=== PATIENT | male | born 2000 | race Caucasian/White ===

== ENCOUNTER 2020-11-30 18:23 | Inpatient (IN) | payer OTHER ==
[2020-11-30 23:59] VITALS: BMI 19.8
[2020-12-01] MEDS ORDERED: IBUPROFEN 400 MG TABLET (FP) PO PRN (01:03)
[2020-12-01] MEDS ORDERED: cloNIDine HCL 0.1 MG TABLET PO PRN (01:03)
[2020-12-01] MEDS ORDERED: MAGNESIUM HYDROX 2400MG/30ML ORAL SUSPENSION 30 ML CUP PO PRN (01:03)
[2020-12-01] MEDS ORDERED: MAG HYDROX/AL HYDROX/SIMETH 30 ML UNIT-DOSE CUP PO PRN (01:03)
[2020-12-01] MEDS ORDERED: METHADONE HCL 10 MG TABLET (FOR DETOX USE ONLY) PO ONE (01:03)
[2020-12-01] MEDS ORDERED: MAGNESIUM CITRATE 300 ML BOTTLE PO PRN (01:03)
[2020-12-01] MEDS ORDERED: METHOCARBAMOL 500 MG TABLET PO PRN (01:03)
[2020-12-01] MEDS ORDERED: MENTHOL/PHENOL 1 EACH UD MM PRN (01:03)
[2020-12-01] MEDS ORDERED: BISMUTH SUBSALICYLATE 524 MG/30 ML PO PRN (01:03)
[2020-12-01] MEDS ORDERED: ACETAMINOPHEN 325 MG TABLET (FP) PO PRN ×2 (01:03)
[2020-12-01] MEDS: ONDANSETRON *ODT* 4 MG TABLET SL PRN ×2 (04:09→11:56)
[2020-12-01] MEDS: NICOTINE POLACRILEX 2 MG GUM BUC PRN ×2 (05:40→10:06)
[2020-12-01] MEDS ORDERED: NICOTINE 21 MG/24 HOURS TOPICAL PATCH TD SCH (10:00)
[2020-12-01] MEDS ORDERED: PRENATAL VITAMINS W/ FOLIC ACID TABLET (FP) PO SCH (10:00)
[2020-12-01 11:14] LABS: HEMATOCRIT 40.8 % (35.4-49); HEMOGLOBIN 13.6 GM/dL (11.7-16.9); MCH 30.2 pg (25.7-33.7); MCHC 33.4 g/dl (32.0-35.9); MEAN CELL VOLUME 90.5 fl (80-96); MEAN PLT VOLUME 8.3 fl (7.5-11.1); PLATELET COUNT 356 10^3/uL (134-434); RDW 12.5 % (11.9-15.9); WHITE BLOOD COUNT 11.7 K/mm3 (4.0-10.0)
[2020-12-01 11:20] LABS: ALBUMIN 5.7 g/dl (3.4-5.0); CALCIUM 10.3 mg/dL (8.5-10.1)
[2020-12-01 11:21] LABS: BLOOD UREA NITROGEN 14.9 mg/dL (7-18)
[2020-12-01 11:24] LABS: CREATININE 0.8 mg/dL (0.55-1.3)
[2020-12-01 11:25] LABS: BILIRUBIN,TOTAL 1.3 mg/dL (0.2-1); TOT PROT 8.7 g/dl (6.4-8.2)
[2020-12-01] MEDS ORDERED: TRIMETHOBENZAMIDE HCL 200MG/2ML INJ IM PRN (12:28)
[2020-12-01 13:14] VITALS: BP 126/63; PULSE 71; TEMP 97.7
[2020-12-01] MEDS ORDERED: DICYCLOMINE HCL 10 MG CAPSULE PO ONE (14:30)
[2020-12-01] MEDS ORDERED: THIAMINE HCL 100 MG TABLET (FP) PO SCH (22:00)
[2020-12-01] MEDS ORDERED: MELATONIN 5 MG TABLETS PO SCH (22:00)
[2020-12-01] MEDS ORDERED: DIVALPROEX NA *ER* EXTEND REL 500 MG TABLET.SA (FP) PO SCH (22:00)
[2020-12-02] MEDS ORDERED: METHADONE (DETOX) 20 MG, METHADONE (DETOX) 5 MG PO ONE (10:00)
[2020-12-03] MEDS ORDERED: METHADONE HCL 10 MG TABLET (FOR DETOX USE ONLY) PO ONE (10:00)
[2020-12-04] MEDS ORDERED: METHADONE (DETOX) 10 MG, METHADONE (DETOX) 5 MG PO ONE (10:00)
[2020-12-05] MEDS ORDERED: METHADONE HCL 10 MG TABLET (FOR DETOX USE ONLY) PO ONE (10:00)
[2020-12-06] MEDS ORDERED: METHADONE HCL 5 MG TABLET (FOR DETOX USE ONLY) PO ONE (06:00)
== END 2020-12-02 06:00 | disposition short-term general hospital (02) | DRG 897 ==
LOC: YASAS 18:23 → Y6N 12-01 01:15
PROVIDERS: ADMIT Allergy & Immunology; ATTEND Allergy & Immunology
PROC: HZ2ZZZZ Detoxification Services for Substance Abuse Treatment (ICD-10-PCS; principal; 2020-12-01)
DX: F11.23 Opioid dependence with withdrawal (principal); F19.282 Other psychoactive substance dependence with psychoactive substance-induced sleep disorder; F12.20 Cannabis dependence, uncomplicated; F17.210 Nicotine dependence, cigarettes, uncomplicated; F63.81 Intermittent explosive disorder; F41.9 Anxiety disorder, unspecified; F32.9 Major depressive disorder, single episode, unspecified; E86.0 Dehydration; R11.2 Nausea with vomiting, unspecified; Z62.810 Personal history of physical and sexual abuse in childhood; Z91.410 Personal history of adult physical and sexual abuse
CPT/HCPCS: 36415; 80053; 85027; 86780; 93005; 93010; C9803; Q0162; U0003; U0005

== ENCOUNTER 2020-12-01 16:18 | Observation (INO) | payer OTHER ==
[2020-12-01 16:36] VITALS: BMI 19.8
[2020-12-01] MEDS ORDERED: DICYCLOMINE HCL 20 MG/2 ML AMPUL IM ONE (16:43)
[2020-12-01] MEDS ORDERED: METOCLOPRAMIDE HCL INJECTION 10 MG/2 ML VIAL IVPB ONE (16:44)
[2020-12-01] MEDS ORDERED: METOCLOPRAMIDE HCL INJECTION 10 MG/2 ML VIAL ONE (16:48)
[2020-12-01] MEDS ORDERED: LACTATED RINGERS SOLUTION 1000 ML INFUS.BAG IV ONE ×3 (17:00→17:55)
[2020-12-01 17:30] LABS: BASO % 0.3 % (0-2.0); EOS % 0.1 % (0-4.5); HEMATOCRIT 40.2 % (35.4-49); HEMOGLOBIN 13.9 GM/dL (11.7-16.9); LYMPH % 6.2 % (8-40); MCH 30.6 pg (25.7-33.7); MCHC 34.4 g/dl (32.0-35.9); MEAN CELL VOLUME 88.8 fl (80-96); MEAN PLT VOLUME 7.9 fl (7.5-11.1); MONO % 5.2 % (3.8-10.2); NEUT % 88.2 % (42.8-82.8); PLATELET COUNT 379 10^3/uL (134-434); RBC 4.53 M/mm3 (4.00-5.60); RDW 12.6 % (11.9-15.9); WHITE BLOOD COUNT 15.5 K/mm3 (4.0-10.0)
[2020-12-01] MEDS ORDERED: LORazepam 2 MG/ML SDV VIAL IVPUSH ONE ×2 (17:30→19:11)
[2020-12-01] MEDS ORDERED: LORazepam 2 MG/ML SDV VIAL ONE ×2 (17:45→19:15)
[2020-12-01 17:51] LABS: ALBUMIN 5.3 g/dl (3.4-5.0); BLOOD UREA NITROGEN 14.9 mg/dL (7-18); CALCIUM 10.4 mg/dL (8.5-10.1)
[2020-12-01 17:56] LABS: BILIRUBIN,TOTAL 0.9 mg/dL (0.2-1); TOT PROT 8.4 g/dl (6.4-8.2)
[2020-12-01] MEDS ORDERED: HALOPERIDOL LACTATE 5 MG/ML IM ONE (18:25)
[2020-12-01] MEDS ORDERED: HALOPERIDOL LACTATE 5 MG/ML ONE (18:28)
[2020-12-01] MEDS ORDERED: MAGNESIUM SULF 50% (8.12 MEQ/2 ML-1 GM VIAL) IVPB ONE (18:59)
[2020-12-01] MEDS ORDERED: ONDANSETRON 4 MG/2 ML VIAL IVPUSH ONE (19:11)
[2020-12-01] MEDS ORDERED: ONDANSETRON 4 MG/2 ML VIAL ONE (19:15)
[2020-12-01] MEDS ORDERED: MAGNESIUM SULF 50% (8.12 MEQ/2 ML-1 GM VIAL) ONE (19:26)
[2020-12-01 20:23] LABS: MAGNESIUM 2.1 mg/dL (1.8-2.4)
[2020-12-01 20:27] LABS: PHOSPHOROUS 1.4 mg/dL (2.5-4.9)
[2020-12-01] MEDS ORDERED: LACTATED RINGERS SOLUTION 1,000 ML IV SCH (20:30)
[2020-12-01 22:36] LABS: CALCIUM 9.7 mg/dL (8.5-10.1)
[2020-12-01 22:37] LABS: MAGNESIUM 2.8 mg/dL (1.8-2.4)
[2020-12-01 22:40] LABS: CREATININE 0.8 mg/dL (0.55-1.3); PHOSPHOROUS 2.8 mg/dL (2.5-4.9)
[2020-12-01 22:41] LABS: BLOOD UREA NITROGEN 14.9 mg/dL (7-18)
[2020-12-02] MEDS ORDERED: PROCHLORPERAZINE INJECTION 10 MG/2 ML VIAL IVPB ONE ×2 (01:13→01:30)
[2020-12-02] MEDS ORDERED: LORazepam 2 MG/ML SDV VIAL IVPUSH ONE (01:30)
[2020-12-02] MEDS ORDERED: PROCHLORPERAZINE INJECTION 10 MG/2 ML VIAL IVPB PRN ×2 (05:00→07:00)
[2020-12-02] MEDS: PROCHLORPERAZINE INJECTION 10 MG/2 ML VIAL IVPB PRN ×3 (06:55→22:33)
[2020-12-02 07:11] LABS: HEMATOCRIT 38.5 % (35.4-49); HEMOGLOBIN 13.4 GM/dL (11.7-16.9); MCH 30.8 pg (25.7-33.7); MCHC 34.9 g/dl (32.0-35.9); MEAN CELL VOLUME 88.4 fl (80-96); MEAN PLT VOLUME 8.2 fl (7.5-11.1); PLATELET COUNT 358 10^3/uL (134-434); RBC 4.35 M/mm3 (4.00-5.60); RDW 12.3 % (11.9-15.9); WHITE BLOOD COUNT 22.3 K/mm3 (4.0-10.0)
[2020-12-02 07:33] LABS: ALBUMIN 5.1 g/dl (3.4-5.0); CALCIUM 9.8 mg/dL (8.5-10.1); MAGNESIUM 2.3 mg/dL (1.8-2.4)
[2020-12-02 07:36] LABS: CREATININE 0.8 mg/dL (0.55-1.3); PHOSPHOROUS 2.8 mg/dL (2.5-4.9)
[2020-12-02 07:37] LABS: TOT PROT 8.4 g/dl (6.4-8.2)
[2020-12-02 07:41] LABS: BILIRUBIN,TOTAL 0.9 mg/dL (0.2-1)
[2020-12-02] MEDS ORDERED: POTASSIUM CHLORIDE ORAL LIQUID 20 MEQ/15 ML PO ONE (08:17)
[2020-12-02] MEDS ORDERED: METHADONE HCL 5 MG TABLET ONE (09:27)
[2020-12-02] MEDS ORDERED: METHADONE HCL 10 MG TABLET ONE (09:28)
[2020-12-02] MEDS ORDERED: METHADONE 20 MG, METHADONE 5 MG PO ONE (10:00)
[2020-12-02] MEDS: cloNIDine HCL 0.1 MG TABLET PO PRN (20:39)
[2020-12-02] MEDS ORDERED: PT OWN MED DRAWER 7, Y5N ONE (22:23)
[2020-12-02] MEDS: DIVALPROEX NA *ER* EXTEND REL 500 MG TABLET.SA (FP) PO SCH ×2 (22:24→22:30)
[2020-12-03] MEDS: cloNIDine HCL 0.1 MG TABLET PO PRN (00:18)
[2020-12-03] MEDS ORDERED: LORazepam 2 MG/ML SDV VIAL IVPUSH ONE (01:30)
[2020-12-03] MEDS: MELATONIN 5 MG TABLETS PO ONE ×2 (01:42→01:47)
[2020-12-03] MEDS ORDERED: ACETAMINOPHEN 1000 MG/100 ML VIAL (NON FORMULARY) IVPB ONE (04:06)
[2020-12-03 09:06] LABS: HEMATOCRIT 39.1 % (35.4-49); HEMOGLOBIN 13.4 GM/dL (11.7-16.9); MCH 30.4 pg (25.7-33.7); MCHC 34.3 g/dl (32.0-35.9); MEAN CELL VOLUME 88.7 fl (80-96); MEAN PLT VOLUME 7.7 fl (7.5-11.1); PLATELET COUNT 332 10^3/uL (134-434); RDW 12.6 % (11.9-15.9)
[2020-12-03 09:26] LABS: ALBUMIN 4.9 g/dl (3.4-5.0); CALCIUM 10.1 mg/dL (8.5-10.1); MAGNESIUM 2.7 mg/dL (1.8-2.4)
[2020-12-03 09:29] LABS: CREATININE 0.6 mg/dL (0.55-1.3); PHOSPHOROUS 3.2 mg/dL (2.5-4.9)
[2020-12-03 09:31] LABS: TOT PROT 7.9 g/dl (6.4-8.2)
[2020-12-03] MEDS ORDERED: METHADONE HCL 10 MG TABLET PO ONE (10:00)
[2020-12-03] MEDS ORDERED: POTASSIUM CHLORIDE ORAL LIQUID 20 MEQ/15 ML PO ONE (10:41)
[2020-12-03] MEDS ORDERED: TRIMETHOBENZAMIDE HCL 300 MG CAPSULE PO ONE (10:51)
[2020-12-03] MEDS: ENOXAPARIN NA (PORCINE) 40 MG/0.4 ML DISP.SYRIN SQ SCH (11:04)
[2020-12-03] MEDS: PROCHLORPERAZINE INJECTION 10 MG/2 ML VIAL IVPB PRN ×2 (11:06→20:27)
[2020-12-03] MEDS ORDERED: PT OWN MED DRAWER 7, Y5N ONE ×2 (11:22→15:09)
[2020-12-03] MEDS ORDERED: TRIMETHOBENZAMIDE HCL 200MG/2ML INJ IM ONE (11:32)
[2020-12-03] MEDS ORDERED: POTASSIUM CHLORIDE TABS 20 MEQ TABLET.ER (FP) PO ONE (12:23)
[2020-12-03 19:12] LABS: EPI CELLS 16 /uL (0-25.1); HYALINE CASTS 4 /uL (0-3.1); URINE APPEARANCE CLEAR; URINE BACTERIA 705 /uL (0-1359); URINE BILIRUBIN NEGATIVE (NEGATIVE); URINE COLOR YELLOW; URINE GLUCOSE (UA) NEGATIVE (NEGATIVE); URINE KETONE 3+ (NEGATIVE); URINE LEUK ESTERASE NEGATIVE (NEGATIVE); URINE NITRITE NEGATIVE (NEGATIVE); URINE PROTEIN 1+ (NEGATIVE); URINE RBC 11 /uL (0-23.9); URINE WBC 17 /uL (0-25.8)
[2020-12-03] MEDS ORDERED: MELATONIN 5 MG TABLETS PO ONE (23:28)
[2020-12-04] MEDS: DIVALPROEX NA *ER* EXTEND REL 500 MG TABLET.SA (FP) PO SCH (00:08)
[2020-12-04] MEDS ORDERED: LORazepam 1 MG TABLET PO ONE (01:04)
[2020-12-04 08:52] LABS: HEMATOCRIT 40.8 % (35.4-49); HEMOGLOBIN 13.8 GM/dL (11.7-16.9); MCH 30.2 pg (25.7-33.7); MCHC 33.9 g/dl (32.0-35.9); MEAN PLT VOLUME 8.4 fl (7.5-11.1); PLATELET COUNT 351 10^3/uL (134-434); RBC 4.59 M/mm3 (4.00-5.60); RDW 12.4 % (11.9-15.9); WHITE BLOOD COUNT 15.6 K/mm3 (4.0-10.0)
[2020-12-04 09:04] LABS: CALCIUM 9.9 mg/dL (8.5-10.1)
[2020-12-04 09:05] LABS: ALBUMIN 4.9 g/dl (3.4-5.0); BLOOD UREA NITROGEN 19.2 mg/dL (7-18); MAGNESIUM 2.4 mg/dL (1.8-2.4)
[2020-12-04 09:08] LABS: CREATININE 0.6 mg/dL (0.55-1.3); PHOSPHOROUS 3.2 mg/dL (2.5-4.9)
[2020-12-04 09:10] LABS: TOT PROT 7.7 g/dl (6.4-8.2)
[2020-12-04] MEDS ORDERED: METHADONE HCL 5 MG TABLET ONE (09:25)
[2020-12-04] MEDS ORDERED: METHADONE HCL 10 MG TABLET ONE (09:25)
[2020-12-04] MEDS: ENOXAPARIN NA (PORCINE) 40 MG/0.4 ML DISP.SYRIN SQ SCH (09:29)
[2020-12-04 09:56] VITALS: BP 134/75; PULSE 84; TEMP 98.6
[2020-12-04] MEDS ORDERED: METHADONE 10 MG, METHADONE 5 MG PO ONE (10:00)
[2020-12-05] MEDS ORDERED: METHADONE HCL 10 MG TABLET PO ONE (10:00)
[2020-12-06] MEDS ORDERED: METHADONE HCL 5 MG TABLET PO ONE (06:00)
== END 2020-12-04 10:03 | disposition left against medical advice (07) ==
LOC: JER 16:18 → JERBED 19:01 → J4W 23:51
PROVIDERS: ADMIT Hospitalist; ATTEND Internal Medicine
PROC: 3E033GC Introduction of Other Therapeutic Substance into Peripheral Vein, Percutaneous Approach (ICD-10-PCS; principal; 2020-12-01)
PROC: 3E013GC Introduction of Other Therapeutic Substance into Subcutaneous Tissue, Percutaneous Approach (ICD-10-PCS; 2020-12-01)
DX: F11.23 Opioid dependence with withdrawal (principal); R11.2 Nausea with vomiting, unspecified; F17.210 Nicotine dependence, cigarettes, uncomplicated; F63.81 Intermittent explosive disorder; I45.81 Long QT syndrome; E83.39 Other disorders of phosphorus metabolism; E83.52 Hypercalcemia; E88.09 Other disorders of plasma-protein metabolism, not elsewhere classified; F12.20 Cannabis dependence, uncomplicated; F41.9 Anxiety disorder, unspecified; F32.9 Major depressive disorder, single episode, unspecified; D72.829 Elevated white blood cell count, unspecified; E87.6 Hypokalemia
CPT/HCPCS: 36415; 71045-TC-FY; 80048; 80053; 81003; 83690; 83735; 84100; 85025; 85027; 87040; 93005; 93010; 96372; 96374; 96375; 96376; 99285-25; C9803; G0378; J0131; J0735; U0003; U0005